=== PATIENT | female | born 1995 | race Hispanic/Latino ===

== ENCOUNTER 2020-05-13 03:36 | Emergency (ER) | payer SELFPAY ==
[2020-05-13 04:25] LABS: Absolute Lymphocytes (CBC) 0.6 K/uL (0.7-4.9); Basophils % 0.1 % (0-1.3); Hematocrit 36.7 % (36.0-45.0); Lymphocytes % 13.9 % (15.3-44.8); MPV 7.5 fL (7.6-11.3); RBC Red Blood Cell Count 4.68 M/uL (3.86-4.86)
[2020-05-13] MEDS ORDERED: ASPIRIN 81 MG CHEWABLE TABLET ONE (04:29)
[2020-05-13] MEDS ORDERED: NA CHLORIDE 0.9% 1,000 ML ONE (04:30)
[2020-05-13] MEDS ORDERED: AZITHROMYCIN 500 MG INJ IVPB ONE (04:30)
[2020-05-13] MEDS ORDERED: dexAMETHasone 10 MG/ML VIAL ONE (04:30)
[2020-05-13] MEDS ORDERED: FAMOTIDINE 20 MG/2 ML VIAL IV ONE (04:30)
[2020-05-13] MEDS ORDERED: NA CHLORIDE 0.9% 250 ML ONE (04:30)
[2020-05-13] MEDS ORDERED: ALBUTEROL INHALER 60 PUFF/8 GM IH ONE (04:37)
[2020-05-13 04:38] LABS: ALT/SGPT 27 U/L (12-78); AST/SGOT 19 U/L (15-37); Albumin 3.3 g/dL (3.4-5.0); Alkaline Phosphatase 66 U/L (45-117); BUN Blood Urea Nitrogen 9 mg/dL (7-18); Bicarbonate 22 mmol/L (21-32); Bilirubin Total 0.5 mg/dL (0.2-1.0); Glucose Level 112 mg/dL (74-106); Potassium 3.7 mmol/L (3.5-5.1); Protein, Total 7.8 g/dL (6.4-8.2); Sodium Level 140 mmol/L (136-145)
--- NOTE | 2020-05-13 05:34 | EDPHYS ---
Physician Documentation [facility] – [place], [place] Name: Rima Buckley Age: 24 yrs Sex: Female : 1995 Arrival Date: 05/13/2020 Time: 03:40 Bed 5 Private MD: ED Physician Skinny Luu HPI: 05/13 04:06 This 24 yrs old Female presents to ER via Ambulatory with complaints of christel COVID+, Shakiness. 04:06 The patient or guardian reports chest pain that is located primarily in the anterior [facility] chest wall, bilaterally. The patient or guardian reports cough, difficulty breathing, flu symptoms, arthralgias, low-grade fever, myalgias. Onset: The symptoms/episode began/occurred 7 day(s) ago. Modifying factors: The symptoms are alleviated by nothing. the symptoms are aggravated by nothing. The pain does not radiate. Associated signs and symptoms: Pertinent positives: chest pain, fever, nausea, rhinorrhea, sore throat. The chest pain is described as a pressure. Modifying factors: The symptoms are alleviated by nothing. the symptoms are aggravated by nothing. 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 - Social history:: Smoking status: Patient denies any tobacco usage or history of. - Family history:: not pertinent. ROS: 04:06 Constitutional: Negative for fever, chills, and weight loss, Eyes: Negative for injury, christel pain, redness, and discharge, ENT: Negative for injury, pain, and discharge, Neck: Negative for injury, pain, and swelling, Cardiovascular: Negative for chest pain, palpitations, and edema, Abdomen/GI: Negative for abdominal pain, nausea, vomiting, diarrhea, and constipation, Back: Negative for injury and pain, : Negative for injury, bleeding, discharge, and swelling, MS/Extremity: Negative for injury and deformity, Skin: Negative for injury, rash, and discoloration, Neuro: Negative for headache, weakness, numbness, tingling, and seizure, Psych: Negative for depression, anxiety, suicide ideation, homicidal ideation, and hallucinations, Allergy/Immunology: Negative for hives, rash, and allergies, Endocrine: Negative for neck swelling, polydipsia, polyuria, polyphagia, and marked weight changes, Hematologic/Lymphatic: Negative for swollen nodes, abnormal bleeding, and unusual bruising. 04:06 Respiratory: Positive for cough, shortness of breath. Exam: 04:08 Constitutional: This is a well developed, well nourished patient who is awake, alert, christel and in no acute distress. Head/Face: Normocephalic, atraumatic. Eyes: Pupils equal round and reactive to light, extra-ocular motions intact. Lids and lashes normal. Conjunctiva and sclera are non-icteric and not injected. Cornea within normal limits. Periorbital areas with no swelling, redness, or edema. ENT: Nares patent. No nasal discharge, no septal abnormalities noted. Tympanic membranes are normal and external auditory canals are clear. Oropharynx with no redness, swelling, or masses, exudates, or evidence of obstruction, uvula midline. Mucous membranes moist. Neck: Trachea midline, no thyromegaly or masses palpated, and no cervical lymphadenopathy. Supple, full range of motion without nuchal rigidity, or vertebral point tenderness. No Meningismus. Chest/axilla: Normal chest wall appearance and motion. Nontender with no deformity. No lesions are appreciated. Cardiovascular: Regular rate and rhythm with a normal S1 and S2. No gallops, murmurs, or rubs. Normal PMI, no JVD. No pulse deficits. Abdomen/GI: Soft, non-tender, with normal bowel sounds. No distension or tympany. No guarding or rebound. No evidence of tenderness throughout. Back: No spinal tenderness. No costovertebral tenderness. Full range of motion. Female : Normal external genitalia. Skin: Warm, dry with normal turgor. Normal color with no rashes, no lesions, and no evidence of cellulitis. MS/ Extremity: Pulses equal, no cyanosis. Neurovascular intact. Full, normal range of motion. Neuro: Awake and alert, GCS 15, oriented to person, place, time, and situation. Cranial nerves II-XII grossly intact. Motor strength 5/5 in all extremities. Sensory grossly intact. Cerebellar exam normal. Normal gait. Psych: Awake, alert, with orientation to person, place and time. Behavior, mood, and affect are within normal limits. 04:08 Respiratory: mild respiratory distress is noted, Respirations: no acute changes, labored breathing, is not present, Breath sounds: decreased breath sounds, that are mild, are located in both bases, Respiratory rate: 25 04:11 ECG was reviewed by the Attending Physician. [facility] Vital Signs: 03:51 BP 136 / 93; Pulse 115; Resp 24; Temp 98.6(O); Pulse Ox 96% ; Weight 81.65 kg; Height 5 em ft. 2 in. (157.48 cm); Pain 9/10; 04:05 BP 118 / 74; Pulse 101; Resp 25; Pulse Ox 99% ; rr5 05:05 BP 119 / 70; Pulse 99; Resp 24; Temp 98.8; Pulse Ox 99% ; rr5 05:52 BP 124 / 88; Pulse 98; Resp 20; Pulse Ox 99% on R/A; ea 03:51 Body Mass Index 32.92 (81.65 kg, 157.48 cm) em MDM: 03:48 Patient medically screened. [facility] 04:09 Differential diagnosis: bronchitis, flu, URI, abnormal EKG. Antibiotic administration: christel The patient is discharged and will get outpatient antibiotics, Zithromax. HEART Score: History: Slightly Suspicious (0), ECG: Normal (0), Age: < or = 45 years (0), Risk Factors: No Risk Factors Known (0), Troponin: < or = 1 x Normal Limit (0). The patient's deep vein thrombosis risk score was calculated as follows: Total Score: 0. This patient was found to be at low risk for a deep vein thrombosis by using the Well's assessment criteria. The patient's pulmonary embolism risk score was calculated as follows: Total Score: 0-2 points. This patient was found to be at low risk for a pulmonary embolism by using the Well's assessment criteria. ARNOLD Risk Score: not applicable. Data reviewed: vital signs, nurses notes, lab test result(s), EKG, radiologic studies. Data interpreted: monitoring manager: rate is 101 beats/min, rhythm is regular. Test interpretation: by ED physician or midlevel provider: ECG, plain radiologic studies. Counseling: I had a detailed discussion with the patient and/or guardian regarding: the historical points, exam findings, and any diagnostic results supporting the discharge/admit diagnosis, lab results, radiology results, the need for outpatient follow up. 05/13 04:06 Order name: CBC with Diff; Complete Time: 05:19 [facility] 05/13 04:06 Order name: Comprehensive Metabolic Panel; Complete Time: 05:19 [facility] 05/13 04:06 Order name: Chest Single View XRAY [facility] 05/13 04:06 Order name: CT Chest For PE Angio [facility] 05/13 05:06 Order name: Urine --Ancillary (enter results) tt3 05/13 05:06 Order name: Urine Dipstick--Ancillary (enter results) tt3 05/13 04:04 Order name: EKG; Complete Time: 04:04 05/13 04:04 Order name: EKG - Nurse/Tech; Complete Time: 04:04 ea 05/13 04:06 Order name: Urine Dipstick-Ancillary (obtain specimen); Complete Time: 05:03 [facility] 05/13 04:06 Order name: Urine Test (obtain specimen); Complete Time: 05:03 [facility] EC:11 Rate is 93 beats/min. Rhythm is regular. QRS [place] is Normal. CT interval is normal. QRS christel interval is normal. QT interval is normal. No Q waves. T waves are Normal. No ST changes noted. Clinical impression: Normal ECG and No evidence of ischemia. Interpreted by me. Reviewed by me. Administered Medications: 04:15 Drug: NS 0.9% 500 ml Route: IV; Rate: bolus; Site: right antecubital; rr5 05:50 Follow up: Response: No adverse reaction; IV Status: Completed infusion; IV Intake: ea 500ml 04:16 Drug: Aspirin Chewable Tablet 324 mg Route: PO; rr5 05:51 Follow up: Response: No adverse reaction ea 04:17 Drug: Pepcid 20 mg Route: IVP; Site: right antecubital; rr5 05:51 Follow up: Response: No adverse reaction ea 04:19 Drug: Decadron - Dexamethasone 10 mg Route: IVP; Site: right antecubital; rr5 05:50 Follow up: Response: No adverse reaction ea 04:20 Drug: Albuterol HFA Inhaler 4 puffs Route: Inhalation; rr5 04:21 Dru mg of (Zithromax 500 mg, NS 0.9% 250 ml) Route: IVPB; Infused Over: 1 hrs; rr5 Site: right antecubital; 05:51 Follow up: Response: No adverse reaction; IV Status: Completed infusion ea Disposition: 05/13/20 05:33 Discharged to Home. Impression: SARS-associated coronavirus as the cause of diseases classified elsewhere, Viral pneumonia, unspecified - COVID 19. - Condition is Stable. - Discharge Instructions: Community-Acquired Pneumonia, Adult, Community-Acquired Pneumonia, Adult, Ouir-py-Gmoh, Aspirin and Your Heart, COVID-19. - Prescriptions for dexamethasone 2 mg Oral tablet - take 1 tablet by ORAL route 3 times per day; 15 tablet. ivermectin 3 mg Oral tablet - take 4 tablet by ORAL route once daily x1 dose ON DAY #1 AND DAY #3; 8 tablet. Pepcid 20 mg Oral Tablet - take 1 tablet by ORAL route every 12 hours for 10 days; 20 tablet. Albuterol Sulfate 90 mcg/actuation Inhalation - inhale 2 puff by INHALATION route every 4-6 hours; 1 Inhaler. Zithromax 500 mg Oral Tablet - take 1 tablet by ORAL route once daily for 4 days; 4 tablet. - Medication Reconciliation Form, Thank You Letter, Antibiotic Education, Prescription Opioid Use form. - Follow up: Private Physician; When: 2 - 3 days; Reason: Recheck today's complaints, Continuance of care, Re-evaluation by your physician. Follow up: Charly Torres; When: 2 - 3 days; Reason: Recheck today's complaints, Continuance of care, Re-evaluation by your physician. - Problem is new. - Symptoms have improved. Signatures: Dispatcher [employer] Skinny Douglass MD MD cha Munoz, Edgar, RN Eduar Bhandari, GETTERER-C GETTERER-Cla1 Cristal Rojas RN RN ea Roque, Raymond RN RN rr5 Corrections: (The following items were deleted from the chart) 05:55 05:33 05/13/2020 05:33 Discharged to Home. Impression: SARS-associated coronavirus as ea the cause of diseases classified elsewhere; Viral pneumonia, unspecified - COVID 19. Condition is Stable. Discharge Instructions: Community-Acquired Pneumonia, Adult, Community-Acquired Pneumonia, Adult, Xfzd-ma-[id number], Aspirin and Your Heart, COVID-19. Prescriptions for dexamethasone 2 mg Oral tablet - take 1 tablet by ORAL route 3 times per day; 15 tablet, ivermectin 3 mg Oral tablet - take 4 tablet by ORAL route once daily x1 dose ON DAY #1 AND DAY #3; 8 tablet, Pepcid 20 mg Oral Tablet - take 1 tablet by ORAL route every 12 hours for 10 days; 20 tablet, Albuterol Sulfate 90 mcg/actuation Inhalation - inhale 2 puff by INHALATION route every 4-6 hours; 1 Inhaler, Zithromax 500 mg Oral Tablet - take 1 tablet by ORAL route once daily for 4 days; 4 tablet. and Forms are Medication Reconciliation Form, Thank You Letter, Antibiotic Education, Prescription Opioid Use. Follow up: Private Physician; When: 2 - 3 days; Reason: Recheck today's complaints, Continuance of care, Re-evaluation by your physician. Follow up: Charly Torres; When: 2 - 3 days; Reason: Recheck today's complaints, Continuance of care, Re-evaluation by your physician. Problem is new. Symptoms have improved. christel
--- NOTE | 2020-05-13 05:34 | ER ---
Nurse's Notes [facility] [place] Name: Rima Buckley Age: 24 yrs Sex: Female : 1995 Arrival Date: 05/13/2020 Time: 03:40 Bed 5 Private MD: Diagnosis: SARS-associated coronavirus as the cause of diseases classified elsewhere;Viral pneumonia, unspecified-COVID 19 Presentation: 05/13 03:47 Ebola Screen: No symptoms or risks identified at this time. ea 03:51 Chief complaint: Patient states: was covid pos. on Monday, went to [place] for treatment, em discharged and given antibiotics, steroids, and cough medicine, pt reports not feeling better, reports more SOB, fever, chills, and chest pain. Coronavirus screen: Client reports previous positive COVID test result. Date of collection: May 10, 2020. Ebola Screen: Patient negative for fever greater than or equal to 101.5 degrees Fahrenheit, and additional compatible Ebola Virus Disease symptoms Patient denies exposure to infectious person. Patient denies travel to an Ebola-affected area in the 21 days before illness onset. No symptoms or risks identified at this time. Initial Sepsis Screen: Does the patient meet any 2 criteria? RR > 20 per min. HR > 90 bpm. No. Patient's initial sepsis screen is negative. Does the patient have a suspected source of infection? Yes: Productive cough/pneumonia. Risk Assessment: Do you want to hurt yourself or someone else? Patient reports no desire to harm self or others. Onset of symptoms was May 10, 2020. 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 - Social history:: Smoking status: Patient denies any tobacco usage or history of. - Family history:: not pertinent. Screenin:46 Abuse screen: Denies threats or abuse. Nutritional screening: No deficits noted. ea Tuberculosis screening: No symptoms or risk factors identified. Fall Risk None identified. Assessment: 03:55 General: Appears in no apparent distress. uncomfortable, Behavior is cooperative, rr5 anxious, Reports chills for fever for feeling ill for. 03:55 Pain: Complains of pain in chest Pain Quality of pain is described as aching, Pain rr5 began gradually, Is intermittent. Neuro: Level of Consciousness is awake, alert, obeys commands, Oriented to person, place, time. Cardiovascular: Reports chest pain, Capillary refill < 3 seconds Patient's skin is warm and dry. Respiratory: Reports shortness of breath cough that is Airway is patent Respiratory effort is even, unlabored, Respiratory pattern is regular, symmetrical. GI:. Derm: Skin is intact, is healthy with good turgor, Skin temperature is warm. Musculoskeletal: Capillary refill < 3 seconds. 05:05 Reassessment: Patient appears in no apparent distress at this time. Patient is alert, rr5 oriented x 3, equal unlabored respirations, skin warm/dry/pink. back from CT scan, urine specimen given. vital signs taken and recorded. 05:44 Reassessment: Patient and/or family updated on plan of care and expected duration. Pain ea level reassessed. Patient is alert, oriented x 3, equal unlabored respirations, skin warm/dry/pink. Awaiting on fluids to complete. Vital Signs: 03:51 BP 136 / 93; Pulse 115; Resp 24; Temp 98.6(O); Pulse Ox 96% ; Weight 81.65 kg; Height 5 em ft. 2 in. (157.48 cm); Pain 9/10; 04:05 BP 118 / 74; Pulse 101; Resp 25; Pulse Ox 99% ; rr5 05:05 BP 119 / 70; Pulse 99; Resp 24; Temp 98.8; Pulse Ox 99% ; rr5 05:52 BP 124 / 88; Pulse 98; Resp 20; Pulse Ox 99% on R/A; ea 03:51 Body Mass Index 32.92 (81.65 kg, 157.48 cm) em ED Course: 03:40 Patient arrived in ED. cl3 03:41 Skinny Luu MD is Attending Physician. christel 03:46 Cristal Rojas RN is Primary Nurse. ea 03:46 Patient has correct armband on for positive identification. Bed in low position. Call ea light in reach. Side rails up X2. 03:52 Arm band placed on right wrist. Patient placed in an exam room, on a stretcher, on ea pulse oximetry. 03:54 Triage completed. em 03:55 Inserted saline lock: 20 gauge in right antecubital area, using aseptic technique. ds4 Blood collected. 03:59 EKG done, by ED staff, reviewed by Skinny Luu MD. rr5 04:18 Chest Single View XRAY In Process Unspecified. EDMS 05:03 CT Chest For PE Angio In Process Unspecified. EDMS 05:06 Urine collected: clean catch specimen, clear. rr5 05:33 Charly Torres MD is Referral Physician. christel 05:51 No provider procedures requiring assistance completed. IV discontinued, intact, ea bleeding controlled, No redness/swelling at site. Pressure dressing applied. Administered Medications: 04:15 Drug: NS 0.9% 500 ml Route: IV; Rate: bolus; Site: right antecubital; rr5 05:50 Follow up: Response: No adverse reaction; IV Status: Completed infusion; IV Intake: ea 500ml 04:16 Drug: Aspirin Chewable Tablet 324 mg Route: PO; rr5 05:51 Follow up: Response: No adverse reaction ea 04:17 Drug: Pepcid 20 mg Route: IVP; Site: right antecubital; rr5 05:51 Follow up: Response: No adverse reaction ea 04:19 Drug: Decadron - Dexamethasone 10 mg Route: IVP; Site: right antecubital; rr5 05:50 Follow up: Response: No adverse reaction ea 04:20 Drug: Albuterol HFA Inhaler 4 puffs Route: Inhalation; rr5 04:21 Dru mg of (Zithromax 500 mg, NS 0.9% 250 ml) Route: IVPB; Infused Over: 1 hrs; rr5 Site: right antecubital; 05:51 Follow up: Response: No adverse reaction; IV Status: Completed infusion ea Intake: 05:50 IV: 500ml; Total: 500ml. ea Outcome: 05:33 Discharge ordered by . christel 05:52 Discharged to home ambulatory. ea 05:52 Condition: stable 05:52 Discharge instructions given to patient, Instructed on discharge instructions, follow up and referral plans. medication usage, Demonstrated understanding of instructions, follow-up care, medications, Prescriptions given X 4. 05:55 Patient left the ED. ea Signatures: Dispatcher [employer] Skinny Douglass MD MD cha Munoz, Edgar, RN RN Drake Morris ds4 Cristal Rojas RN RN Sanket Alvarez RN RN rr5 Thomas Cruz cl3 Corrections: (The following items were deleted from the chart) 04:06 04:05 BP 118 / 74; Pulse 101bpm; Resp 23bpm; Pulse Ox 99%; rr5 rr5 04:08 03:59 COVID swab sent to lab. rr5 rr5 05:53 05:52 BP 124 / 88; Pulse 98bpm; Resp 22bpm; Pulse Ox 99% RA; rosa lee
[2020-05-13 06:29] LABS: Urine Blood 1+ (NEG); Urine Glucose NEGATIVE (NEG); Urine Protein TRACE (NEG); Urine pH 6.5 (5.0-7.0)
--- NOTE | 2020-05-13 08:45 | RAD REPORT ---
EXAM DESCRIPTION: RAD - Chest Single View - 05/13/2020 4:19 am CLINICAL HISTORY: Chest pain;Dyspnea Chest pain. COMPARISON: Chest For Pe Angio dated 05/13/2020 FINDINGS: Portable technique limits examination quality. Mild bilateral interstitial lung opacities probably represents a viral infection. The heart is normal in size. No displaced fractures.
[2020-05-13 09:13] VITALS: BP 136/93; TEMP 98.6; O2SAT 96
--- NOTE | 2020-05-13 09:40 | RAD REPORT ---
EXAM DESCRIPTION: ADDENDUM #1 Technique: This exam was performed according to our departmental dose-optimization program, which includes autom ated exposure control, adjustment of the mA and/or kV according to patient size and/or use of iterati ve reconstruction technique. Electronically signed by: Jigar Merino 05/13/2020 5:25 AM INSURANCE UNDERWRITER End of Addendum EXAM DESCRIPTION: Chest For Pe Angio CLINICAL HISTORY: Cough;Dyspnea COMPARISON: None Available. TECHNIQUE: CTA of the chest obtained following the uncomplicated intravenous administration of iodin ated contrast. 3-D/MIP reformatted images of the chest available for evaluation. FINDINGS: Chest: Pulmonary arteries: Contrast bolus is adequate.No filling defects identified in the pulmonary arterie s to suggest pulmonary embolus. Thyroid: No abnormalities of the visualized thyroid. Great Vessels: Great vessels have normal anatomic configuration. Thoracic Aorta: No abnormalities of the thoracic aorta identified. Heart: No cardiomegaly, significant pericardial effusion, or coronary artery atherosclerosis Lymph Nodes: No enlarged mediastinal lymph nodes identified. Esophagus: No abnormalities of the esophagus identified. Other: No additional findings. Lungs: Bilateral central and peripheral ground glass/airspace opacities. Pleura: No pleural effusion or pneumothorax. Trachea/Airways: No abnormalities of the visualized trachea or airways. Bones: No destructive osseous lesions. Upper Abdomen: Limited images of the upper abdomen demonstrate no definite abnormalities of visualize d portions of the liver, gallbladder, pancreas, spleen, adrenal glands, or kidneys. IMPRESSION: 1. No pulmonary embolus identified. 2. Bilateral central and peripheral ground glass/airspace opacities. These findings could be seen w ith COVID-19 pneumonia. Other processes such as influenza pneumonia and organizing pneumonia, as can be seen with drug toxicity and connective tissue disease, can cause similar imaging pattern. Electronically signed by: Jigar Merino 05/13/2020 5:12 AM INSURANCE UNDERWRITER Due to temporary technical issues with the PACS/Fluency reporting system, reports are being signed by the in house radiologist without review as a courtesy to ensure prompt reporting. The interpreting r adiologist is fully responsible for the content of the report.
--- NOTE | 2020-05-13 22:26 | EKG ---
Test Date: 2020-05-13 Test Time: 03:53:16 Breakfast Bar Attendant: RR MEASUREMENT RESULTS: Intervals: Rate: 93 CA: 154 QRSD: 72 QT: 378 QTc: 469 [place]: P: 37 CA: 154 QRS: 24 T: 44 INTERPRETIVE STATEMENTS: Normal sinus rhythm Normal ECG No previous ECG available for comparison Electronically Signed On 05-13-20 22:25:26 RAMP FLIGHT ATTENDANT by Riccardo Jacobo
== END 2020-05-13 05:55 | disposition home or self-care (01) ==
LOC: ER 03:36
DX: U07.1 COVID-19 (principal); J12.82 Pneumonia due to coronavirus disease 2019
CPT/HCPCS: 36415; 71045; 71275; 80053; 81003; 81025; 85025; 93005; 96365; 96375; 99285; J0456; J1100; J7030; J7050; Q9967

== ENCOUNTER 2020-05-15 19:36 | Emergency (ER) | payer SELFPAY ==
[2020-05-15] MEDS ORDERED: ALBUTEROL INHALER 60 PUFF/8 GM IH ONE (20:42)
--- NOTE | 2020-05-15 22:12 | EDPHYS ---
Physician Documentation [facility] Name: Rima Buckley Age: 24 yrs Sex: Female : 1995 Arrival Date: 05/15/2020 Time: 19:41 Bed 13 Private MD: ED Physician Guero Levine HPI: 05/15 20:25 This 24 yrs old Female presents to ER via Ambulatory with complaints of cp Covid+, Anxiety. 20:25 The patient or guardian reports cough, that is intermittent, shortness of breath. cp 20:25 Onset: The symptoms/episode began/occurred last month. Associated signs and symptoms: cp Pertinent positives: chest pain, with cough, Pertinent negatives: fever, vomiting. Severity of symptoms: in the emergency department the symptoms are unchanged despite home interventions. 20:25 Patient reports symptoms of cough, congestion, chest pain since testing positive for cp COVID-19 on 05-09-20. Patient received results 05-11-2020 and was seen in this ED 05-13-20. Patient currently taking prescribed dexamethasone and Zithromax, had CT of chest that was negative for pulmonary embolism at that visit. Comes to ED today with concern for continued cough, chest pain with cough and mid back pain. Historical: - Allergies: 19:57 No Known Allergies; ca1 - PMHx: 19:57 None; ca1 - PSHx: 19:57 None; ca1 - Immunization history:: Flu vaccine is not up to date. - Social history:: Smoking status: Patient denies any tobacco usage or history of. ROS: 20:45 Constitutional: Negative for body aches, chills, fever, poor PO intake. cp 20:45 Eyes: Negative for injury, pain, redness, and discharge. cp 20:45 ENT: Negative for ear pain, sore throat, difficulty swallowing, difficulty handling secretions. 20:45 Cardiovascular: Positive for chest pain, with cough, Negative for edema, palpitations. 20:45 Respiratory: Positive for cough, with no reported sputum, Negative for shortness of breath, wheezing. 20:45 Abdomen/GI: Negative for abdominal pain, nausea, vomiting, and diarrhea. 20:45 Back: Positive for pain at rest, of the left subscapular area and right subscapular area. 20:45 Skin: Negative for rash. 20:45 Neuro: Negative for altered mental status, headache, weakness. 20:45 Psych: Positive for anxiety. 20:45 All other systems are negative. Exam: 20:50 Constitutional: The patient appears in no acute distress, alert, awake, cp non-diaphoretic, non-toxic, well developed, well nourished, anxious. 20:50 Head/Face: Normocephalic, atraumatic. cp 20:50 Eyes: Periorbital structures: appear normal, Conjunctiva: normal, no exudate, no injection, Sclera: no appreciated abnormality, Lids and lashes: appear normal, bilaterally. 20:50 ENT: External ear(s): are unremarkable, Nose: is normal, Mouth: Lips: moist, Oral mucosa: moist, Posterior pharynx: Airway: no evidence of obstruction, patent. 20:50 Neck: ROM/movement: is normal, is supple, without pain, no range of motions limitations, no meningismus. 20:50 Chest/axilla: Inspection: normal, Palpation: is normal, no crepitus, no tenderness. 20:50 Cardiovascular: Rate: normal, Rhythm: regular, Edema: is not appreciated, JVD: is not appreciated. 20:50 Respiratory: the patient does not display signs of respiratory distress, Respirations: normal, no use of accessory muscles, no retractions, labored breathing, is not present, Breath sounds: bronchial sounds, that are mild, are heard in the left posterior lower lobe, right posterior middle lobe and right posterior lower lobe, decreased breath sounds, are not appreciated, stridor, is not appreciated, wheezing: is not appreciated. 20:50 Abdomen/GI: Inspection: abdomen appears normal, Palpation: abdomen is soft and non-tender, in all quadrants. 20:50 Back: pain, that is very mild, of the left subscapular area and right subscapular area, ROM is normal. 20:50 Skin: no rash present. 20:50 Neuro: Orientation: to person, place \T\ time. Mentation: is normal. 20:50 Psych: Behavior/mood is anxious. Vital Signs: 19:53 BP 147 / 99; Pulse 96; Resp 17 S; Temp 97(TE); Pulse Ox 97% on R/A; Weight 83.46 kg ca1 (R); Height 5 ft. 2 in. (157.48 cm) (R); 21:31 BP 127 / 58; Pulse 80; Resp 17; Pulse Ox 99% ; ea 19:53 Body Mass Index 33.65 (83.46 kg, 157.48 cm) ca1 MDM: 19:48 Patient medically screened. cp 22:10 Data reviewed: vital signs, nurses notes, radiologic studies, plain films. cp 22:10 Test interpretation: by ED physician or midlevel provider: plain radiologic studies. cp Counseling: I had a detailed discussion with the patient and/or guardian regarding: the historical points, exam findings, and any diagnostic results supporting the discharge/admit diagnosis, radiology results, to return to the emergency department if symptoms worsen or persist or if there are any questions or concerns that arise at home. ED course: VSS. Reassurance. low suspicion for pulmonary embolism at this time. Patient with no signs of respiratory distress. CT of chest negative for PE on 05-13-2020. Patient not tachycardic and with oxygen sats 98-99% on room air while being monitored in ED. Will discharge to home for continued monitoring. Recommend monitoring oxygen with finger pulse oximeter and return to Ed worsening symptoms. 05/15 20:20 Order name: XRAY Chest (1 view) cp Administered Medications: 20:40 Drug: Albuterol HFA Inhaler 2 puffs Route: Inhalation; ea Disposition: 05/16 03:14 Co-signature as Attending Physician, Guero Levine MD. [email or web address] Disposition: 05/15/20 22:11 Discharged to Home. Impression: Other viral pneumonia - COVID-19. - Condition is Stable. - Discharge Instructions: COVID-19. - Medication Reconciliation Form, Thank You Letter, Antibiotic Education, Prescription Opioid Use form. - Follow up: Private Physician; When: 2 - 3 days; Reason: Recheck today's complaints. - Problem is an ongoing problem. - Symptoms have improved. Signatures: Dispatcher [employer] EDMS Skinny Lucas PA PA cp Antunez, Elena, RN RN ea Acob, Cheryl, RN RN ca1 Holmes, Maurice, MD MD [email or web address] Corrections: (The following items were deleted from the chart) 05/15 22:12 22:11 05/15/2020 22:11 Discharged to Home. Impression: Coronavirus as the cause of cp diseases classified elsewhere. Condition is Stable. Forms are Medication Reconciliation Form, Thank You Letter, Antibiotic Education, Prescription Opioid Use. Follow up: Private Physician; When: 2 - 3 days; Reason: Recheck today's complaints. Problem is an ongoing problem. Symptoms have improved. cp 22:25 22:12 05/15/2020 22:11 Discharged to Home. Impression: Other viral pneumonia - ea COVID-19. Condition is Stable. Forms are Medication Reconciliation Form, Thank You Letter, Antibiotic Education, Prescription Opioid Use. Follow up: Private Physician; When: 2 - 3 days; Reason: Recheck today's complaints. Problem is an ongoing problem. Symptoms have improved. cp
--- NOTE | 2020-05-15 22:12 | ER ---
Nurse's Notes [facility] Name: Rima Buckley Age: 24 yrs Sex: Female : 1995 Arrival Date: 05/15/2020 Time: 19:41 Bed 13 Private MD: Diagnosis: Other viral [id number] Presentation: 05/15 19:53 Chief complaint: Patient states: Covid+ 05/09/2020, S/S started a week prior to texting. ca1 Monday05/11/2020, she she got the result she's been feeling anxious and the anxiety is just getting worse. Reports SOB. Pt shaking, appears anxious. Coronavirus screen: Client reports previous positive COVID test result. Date of collection: May 09, 2020 Staff notified of need for isolation. Ebola Screen: Patient negative for fever greater than or equal to 101.5 degrees Fahrenheit, and additional compatible Ebola Virus Disease symptoms Patient denies exposure to infectious person. Patient denies travel to an Ebola-affected area in the 21 days before illness onset. No symptoms or risks identified at this time. Initial Sepsis Screen: Does the patient meet any 2 criteria? No. Patient's initial sepsis screen is negative. Does the patient have a suspected source of infection? No. Patient's initial sepsis screen is negative. Risk Assessment: Do you want to hurt yourself or someone else? Patient reports no desire to harm self or others. Onset of symptoms was May 15, 2020. 19:53 Method Of Arrival: Ambulatory ca1 19:53 Acuity: ROYA 3 ca1 Historical: - Allergies: 19:57 No Known Allergies; ca1 - PMHx: 19:57 None; ca1 - PSHx: 19:57 None; ca1 - Immunization history:: Flu vaccine is not up to date. - Social history:: Smoking status: Patient denies any tobacco usage or history of. Screenin:09 Abuse screen: Denies threats or abuse. Nutritional screening: No deficits noted. ea Tuberculosis screening: No symptoms or risk factors identified. Fall Risk None identified. Assessment: 20:09 General: Appears in no apparent distress. Behavior is calm, cooperative, appropriate ea for age. Pain: Denies pain. Neuro: Level of Consciousness is awake, alert, obeys commands, Oriented to person, place, time. Cardiovascular: Patient's skin is warm and dry. Respiratory: Airway is patent Respiratory effort is even, unlabored, Respiratory pattern is regular, symmetrical. Derm: Skin is pink, warm \T\ dry. 21:08 Reassessment: Patient and/or family updated on plan of care and expected duration. Pain ea level reassessed. Patient is alert, oriented x 3, equal unlabored respirations, skin warm/dry/pink. 21:29 Reassessment: Patient and/or family updated on plan of care and expected duration. Pain ea level reassessed. Patient is alert, oriented x 3, equal unlabored respirations, skin warm/dry/pink. Vital Signs: 19:53 BP 147 / 99; Pulse 96; Resp 17 S; Temp 97(TE); Pulse Ox 97% on R/A; Weight 83.46 kg ca1 (R); Height 5 ft. 2 in. (157.48 cm) (R); 21:31 BP 127 / 58; Pulse 80; Resp 17; Pulse Ox 99% ; ea 19:53 Body Mass Index 33.65 (83.46 kg, 157.48 cm) ca1 ED Course: 19:41 Patient arrived in ED. bp1 19:44 Skinny Lucas PA is PHCP. cp 19:44 Guero Levine MD is Attending Physician. cp 19:47 Cristal Rojas, JIN is Primary Nurse. ea 19:56 Triage completed. ca1 19:57 Arm band placed on right wrist. ca1 20:10 Patient has correct armband on for positive identification. Bed in low position. Call ea light in reach. Side rails up X2. 22:25 No provider procedures requiring assistance completed. Patient did not have IV access ea during this emergency room visit. Administered Medications: 20:40 Drug: Albuterol HFA Inhaler 2 puffs Route: Inhalation; ea Outcome: 22:11 Discharge ordered by MD. cp 22:25 Discharged to home ambulatory, with family. ea 22:25 Condition: stable 22:25 Discharge instructions given to patient, Instructed on discharge instructions, follow up and referral plans. Demonstrated understanding of instructions, follow-up care. 22:25 Patient left the ED. ea Signatures: Skinny Lucas PA PA cp Antunez, Elena RN RN Kaycee Lucas RN RN ca1 Isadora Jung bp1
[2020-05-16 00:58] VITALS: TEMP 97
[2020-05-16 00:59] VITALS: BP 127/58; O2SAT 99
--- NOTE | 2020-05-16 07:56 | RAD REPORT ---
EXAM DESCRIPTION: RAD - Chest Single View - 05/15/2020 9:25 pm CLINICAL HISTORY: SOB, COVID positive COMPARISON: CT chest May 13, portable chest May 13 TECHNIQUE: AP portable chest image was obtained 05/15/2020 9:25 pm . FINDINGS: Lung volumes are low. Patchy airspace opacification present in the lung mijares similar or less prominent than the May 13 imaging. Heart size is upper normal, magnified by portable technique and low lung volume. Trachea is midline. No measurable pleural effusion and no pneumothorax. No acute bony abnormality seen. No acute aortic finding. Bowel gas pattern is prominent but unchanged. IMPRESSION: Bilateral COVID-19 pneumonia findings present and show improvement from May 13.
== END 2020-05-15 22:25 | disposition home or self-care (01) ==
LOC: ER 19:36
DX: U07.1 COVID-19 (principal); J12.82 Pneumonia due to coronavirus disease 2019
CPT/HCPCS: 71045; 99284

== ENCOUNTER 2020-05-29 16:04 | Emergency (ER) | payer SELFPAY ==
--- NOTE | 2020-05-29 19:30 | RAD REPORT ---
EXAM DESCRIPTION: RAD - Chest Pa And Lat (2 Views) - 05/29/2020 6:45 pm CLINICAL HISTORY: DYSPNEA Chest pain. COMPARISON: Chest Single View dated 05/15/2020; Chest Single View dated 05/13/2020 FINDINGS: The lungs are clear. The heart is normal in size. No displaced fractures. IMPRESSION: No acute or concerning finding suspected.
--- NOTE | 2020-05-29 20:39 | ER ---
Nurse's Notes [facility] Name: Rima Buckley Age: 24 yrs Sex: Female : 1995 Arrival Date: 05/29/2020 Time: 16:09 Bed 16 Private MD: Diagnosis: Dyspnea;Coronavirus infection, unspecified Presentation: 05/29 16:15 Chief complaint: Patient states: Covid+ 05/11/2020. S/S started 05/08/2020. SOB and chest ca1 tightness and burning since last night. I can't sleep like something is stuck in my throat. Coronavirus screen: Client reports previous positive COVID test result. Date of collection: May 11, 2020. Ebola Screen: Patient negative for fever greater than or equal to 101.5 degrees Fahrenheit, and additional compatible Ebola Virus Disease symptoms Patient denies exposure to infectious person. Patient denies travel to an Ebola-affected area in the 21 days before illness onset. No symptoms or risks identified at this time. Initial Sepsis Screen: Does the patient meet any 2 criteria? No. Patient's initial sepsis screen is negative. Does the patient have a suspected source of infection? No. Patient's initial sepsis screen is negative. Risk Assessment: Do you want to hurt yourself or someone else? Patient reports no desire to harm self or others. Onset of symptoms was May 11, 2020. 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 - Social history:: Smoking status: Patient denies any tobacco usage or history of. Screenin:30 Abuse screen: Denies threats or abuse. Denies injuries from another. Nutritional rr5 screening: No deficits noted. Tuberculosis screening: No symptoms or risk factors identified. Fall Risk IV access (20 points). Total La Fall Scale indicates No Risk (0-24 pts). Assessment: 19:30 General: Appears in no apparent distress. uncomfortable, Behavior is calm, cooperative, rr5 appropriate for age. 19:30 Pain: Complains of pain in chest Pain currently is 8 out of 10 on a pain scale. Quality rr5 of pain is described as aching. Neuro: Level of Consciousness is awake, alert, obeys commands, Oriented to person, place, time, situation. Cardiovascular: Capillary refill < 3 seconds Patient's skin is warm and dry. Rhythm is sinus tachycardia. Respiratory: Reports shortness of breath Airway is patent Respiratory effort is even, unlabored, Respiratory pattern is regular, symmetrical, GI: No signs and/or symptoms were reported involving the gastrointestinal system. : No signs and/or symptoms were reported regarding the genitourinary system. EENT: No signs and/or symptoms were reported regarding the EENT system. Derm: Skin is intact, is healthy with good turgor, Skin temperature is warm. Musculoskeletal: Capillary refill < 3 seconds. 20:58 Reassessment: Patient appears in no apparent distress at this time. Patient is alert, rr5 oriented x 3, equal unlabored respirations, skin warm/dry/pink. discharge instruction given and explained without complaints made. Vital Signs: 16:15 BP 105 / 94; Pulse 125; Resp 20 S; Temp 97.5(TE); Pulse Ox 99% on R/A; Weight 81.65 kg ca1 (R); Height 5 ft. 2 in. (157.48 cm) (R); Pain 8/10; 20:35 BP 115 / 85; Pulse 105; Resp 19; Pulse Ox 100% ; rr5 20:58 Temp 98.1; rr5 16:15 Body Mass Index 32.92 (81.65 kg, 157.48 cm) ca1 ED Course: 16:09 Patient arrived in ED. as 16:17 Triage completed. ca1 16:18 Arm band placed on right wrist. ca1 18:33 Khadra Chowdhury FNP-C is PHCP. kb 18:33 Nick Mejia MD is Attending Physician. kb 18:44 Chest Pa And Lat (2 Views) XRAY In Process Unspecified. EDMS 19:45 Sanket Velarde, JIN is Primary Nurse. rr5 19:58 Patient has correct armband on for positive identification. Call light in reach. Pulse rr5 ox on. NIBP on. 19:58 Inserted saline lock: 20 gauge in right forearm, using aseptic technique. Blood rr5 collected. 20:08 ekg monitor tech on. rr5 20:59 No provider procedures requiring assistance completed. IV discontinued, intact, rr5 bleeding controlled, No redness/swelling at site. Pressure dressing applied. Administered Medications: No medications were administered Outcome: 20:39 Discharge ordered by . gloria 20:59 Discharged to home ambulatory. rr5 20:59 Condition: stable 20:59 Discharge instructions given to patient, Instructed on discharge instructions, follow up and referral plans. Demonstrated understanding of instructions, follow-up care. 20:59 Patient left the ED. rr5 Signatures: Dispatcher [employer] EDMS Khadra Chowdhury, ANALYTICAL RESEARCH CHEMIST-C ANALYTICAL RESEARCH CHEMIST-Jeanne Adorno Raymond RN RN rr5 Kaycee Kaiser RN RN ca1 Corrections: (The following items were deleted from the chart) 18:05 16:15 Acuity: ROYA 3 ca1 ca1
--- NOTE | 2020-05-29 20:39 | EDPHYS ---
Physician Documentation [facility] Name: Rima Buckley Age: 24 yrs Sex: Female : 1995 Arrival Date: 05/29/2020 Time: 16:09 Bed 16 Private MD: ED Physician Nick Mejia HPI: 05/30 00:29 This 24 yrs old Female presents to ER via Ambulatory with complaints of kb Shortness Of Breath. 00:29 The patient has shortness of breath at rest. Onset: The symptoms/episode began/occurred kb 3 week(s) ago. Duration: The symptoms are continuous. The patient's shortness of breath is aggravated by exertion, is alleviated by nothing. Associated signs and symptoms: The patient has no apparent associated signs or symptoms. Severity of symptoms: At their worst the symptoms were moderate in the emergency department the symptoms are unchanged. The patient has experienced a previous episode. The patient has been recently seen at the [facility] Emergency Department. Pt reports shortness of breath for 3-4 weeks due to covid. States she feels like fluid comes up her throat if she lays down. Concerned because people have been telling her that once you have covid pneumonia it never goes away and she was diagnosed with that a couple of weeks ago. Came in today because the shortness of breath seemed to get worse . 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 - Social history:: Smoking status: Patient denies any tobacco usage or history of. ROS: 05/30 00:29 Constitutional: Negative for fever, chills, and weight loss, Cardiovascular: Negative kb for chest pain, palpitations, and edema, Abdomen/GI: Negative for abdominal pain, nausea, vomiting, diarrhea, and constipation, Back: Negative for injury and pain, MS/Extremity: Negative for injury and deformity, Skin: Negative for injury, rash, and discoloration, Neuro: Negative for headache, weakness, numbness, tingling, and seizure. Respiratory: Positive for shortness of breath, Negative for cough, dyspnea on exertion, hemoptysis, orthopnea, pleurisy, sputum production, wheezing. Exam: 00:28 Constitutional: This is a well developed, well nourished patient who is awake, alert, kb and in no acute distress. Head/Face: Normocephalic, atraumatic. Cardiovascular: Regular rate and rhythm with a normal S1 and S2. No gallops, murmurs, or rubs. No pulse deficits. Respiratory: Respirations even and unlabored. No increased work of breathing, no retractions or nasal flaring. Abdomen/GI: Soft, non-tender. No distention Skin: Warm, dry with normal turgor. Normal color. MS/ Extremity: Pulses equal, no cyanosis. Neurovascular intact. Full, normal range of motion. Neuro: Awake and alert, GCS 15, oriented to person, place, time, and situation. Moves all extremities. Normal gait. 00:28 Constitutional: The patient appears anxious. Vital Signs: 05/29 16:15 BP 105 / 94; Pulse 125; Resp 20 S; Temp 97.5(TE); Pulse Ox 99% on R/A; Weight 81.65 kg ca1 (R); Height 5 ft. 2 in. (157.48 cm) (R); Pain 8/10; 20:35 BP 115 / 85; Pulse 105; Resp 19; Pulse Ox 100% ; rr5 20:58 Temp 98.1; rr5 16:15 Body Mass Index 32.92 (81.65 kg, 157.48 cm) ca1 MDM: 18:54 Patient medically screened. kb 05/30 00:28 Data reviewed: vital signs, nurses notes. Data interpreted: Pulse oximetry: on room air kb is 100 %. Interpretation: normal. Counseling: I had a detailed discussion with the patient and/or guardian regarding: the historical points, exam findings, and any diagnostic results supporting the discharge/admit diagnosis, lab results, radiology results, the need for outpatient follow up, a family practitioner, to return to the emergency department if symptoms worsen or persist or if there are any questions or concerns that arise at home. 00:32 ED course: Pt obviously relieved when normal chest x-ray results discussed . kb 05/29 19:27 Order name: D-Dimer; Complete Time: 20:38 kb 05/29 16:51 Order name: Chest Pa And Lat (2 Views) XRAY; Complete Time: 19:35 kb 05/29 19:27 Order name: IV Start; Complete Time: 19:58 kb Administered Medications: No medications were administered Disposition: 05/29/20 20:39 Discharged to Home. Impression: Dyspnea, Coronavirus infection, unspecified. - Condition is Stable. - Discharge Instructions: Shortness of Breath, [id number], Viral Respiratory Infection, [id number], COVID-19. - Medication Reconciliation Form, Thank You Letter, Antibiotic Education, Prescription Opioid Use form. - Follow up: Emergency Department; When: As needed; Reason: Worsening of condition. Follow up: Private Physician; When: 2 - 3 days; Reason: Recheck today's complaints, Continuance of care, Re-evaluation by your physician. Addendum: 05/31/2020 01:14 Co-signature as Attending Physician, Nick Mejia MD I agree with the assessment and k dr plan of care. Signatures: Dispatcher [employer] EDMS Khadra Chowdhury, COREMAKER FLOOR-C COREMAKER FLOOR-Ckb Nick Mejia MD MD [facility] Sanket Velarde, RN RN rr5 AcKaycee prieto RN RN ca1 Corrections: (The following items were deleted from the chart) 05/29 20:59 20:39 05/29/2020 20:39 Discharged to Home. Impression: Dyspnea; Coronavirus infection, rr5 unspecified. Condition is Stable. Forms are Medication Reconciliation Form, Thank You Letter, Antibiotic Education, Prescription Opioid Use. Follow up: Emergency Department; When: As needed; Reason: Worsening of condition. Follow up: Private Physician; When: 2 - 3 days; Reason: Recheck today's complaints, Continuance of care, Re-evaluation by your physician. kb
[2020-05-29 21:14] VITALS: BP 115/85; TEMP 98.1; O2SAT 100
== END 2020-05-29 20:59 | disposition home or self-care (01) ==
LOC: ER 16:04
DX: U07.1 COVID-19 (principal)
CPT/HCPCS: 36415; 71046; 85379; 99284

== ENCOUNTER 2020-06-08 17:49 | Emergency (ER) | payer SELFPAY ==
[2020-06-08 19:04] LABS: Absolute Lymphocytes (CBC) 1.1 K/uL (0.7-4.9); Basophils % 0.6 % (0-1.3); Hematocrit 39.7 % (36.0-45.0); Lymphocytes % 16.8 % (15.3-44.8); MPV 8.1 fL (7.6-11.3)
[2020-06-08 19:17] LABS: BUN Blood Urea Nitrogen 4 mg/dL (7-18); Bicarbonate 25 mmol/L (21-32); Glucose Level 110 mg/dL (74-106); Potassium 3.8 mmol/L (3.5-5.1); Sodium Level 140 mmol/L (136-145)
[2020-06-08] MEDS ORDERED: KETOROLAC 30 MG/ML INJ ONE (19:31)
[2020-06-08] MEDS ORDERED: NA CHLORIDE 0.9% 1,000 ML ONE (19:31)
[2020-06-08] MEDS ORDERED: LORazepam 2 MG/ML VIAL ONE (19:31)
--- NOTE | 2020-06-08 20:09 | RAD REPORT ---
EXAM DESCRIPTION: CT - Chest For Pe Angio - 06/08/2020 7:41 pm CLINICAL HISTORY: Chest pain. Chest pain;Dyspnea COMPARISON: <Comparisons> TECHNIQUE: CT angiogram of the pulmonary arteries was performed with MIP. All CT scans are performed using dose optimization technique as appropriate and may include automated exposure control or mA/KV adjustment according to patient size. FINDINGS: No evidence of pulmonary thromboembolism. No acute aortic finding demonstrated. The lungs are clear. No significant pericardial or pleural fluid. No concerning bony finding. IMPRESSION: No evidence of pulmonary thromboembolism. No acute lung findings.
--- NOTE | 2020-06-08 20:29 | ER ---
Nurse's Notes [facility] Name: Rima Buckley Age: 24 yrs Sex: Female : 1995 Arrival Date: 06/08/2020 Time: 17:51 Bed 14 Private MD: Diagnosis: Dyspnea, unspecified Presentation: 06/08 18:04 Chief complaint: Patient states: Chest pain x 1 month. Burning pain, Pain with ca1 breathing, burning pain to L arm. Can't sleep last night. Also middle of my back is hurting. I feel like my throat is swollen too. Coronavirus screen: Client reports previous positive COVID test result. Date of collection: May 11, 2020 Staff notified of need for isolation. Ebola Screen: Patient negative for fever greater than or equal to 101.5 degrees Fahrenheit, and additional compatible Ebola Virus Disease symptoms Patient denies exposure to infectious person. Patient denies travel to an Ebola-affected area in the 21 days before illness onset. No symptoms or risks identified at this time. Initial Sepsis Screen: Does the patient meet any 2 criteria? No. Patient's initial sepsis screen is negative. Does the patient have a suspected source of infection? No. Patient's initial sepsis screen is negative. Risk Assessment: Do you want to hurt yourself or someone else? Patient reports no desire to harm self or others. Onset of symptoms was June 08, 2020. 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 - Social history:: Smoking status: Patient denies any tobacco usage or history of. Screenin:31 Abuse screen: Denies threats or abuse. Denies injuries from another. Nutritional zb screening: No deficits noted. Tuberculosis screening: No symptoms or risk factors identified. Fall Risk None identified. Assessment: 18:25 Reassessment: ECP at bedside. zb 18:50 General: Appears in no apparent distress. uncomfortable, Behavior is anxious. Pain: zb Complains of pain in back and chest Pain currently is 8 out of 10 on a pain scale. Quality of pain is described as pressure. Neuro: Level of Consciousness is awake, alert, obeys commands, Oriented to person, place, time, situation. Cardiovascular: Heart tones S1 S2 present Patient's skin is warm and dry. Pulses are all present. Rhythm is sinus tachycardia Chest pain is described as mild. Respiratory: Airway is patent Respiratory effort is even, unlabored, Respiratory pattern is regular, symmetrical, Breath sounds are clear bilaterally. GI: Abdomen is round non-distended. Derm: Skin is intact, is healthy with good turgor, Skin is dry, Skin is normal, Skin temperature is warm. Musculoskeletal: Range of motion: intact in all extremities. 19:30 Reassessment: Patient appears in no apparent distress at this time. Patient and/or zb family updated on plan of care and expected duration. Pain level reassessed. Patient is alert, oriented x 3, equal unlabored respirations, skin warm/dry/pink. 20:58 Reassessment: Patient appears in no apparent distress at this time. Patient and/or zb family updated on plan of care and expected duration. Pain level reassessed. Patient is alert, oriented x 3, equal unlabored respirations, skin warm/dry/pink. no acute distress. pt up at flex. gait even and steady upon d/c. Vital Signs: 18:04 BP 135 / 94; Pulse 119; Resp 18 S; Temp 97.8(TE); Pulse Ox 98% on R/A; Weight 81.19 kg ca1 (R); Height 5 ft. 2 in. (157.48 cm) (R); Pain 9/10; 18:49 BP 115 / 83; Pulse 113; Resp 19; Pulse Ox 99% on R/A; zb 19:30 BP 114 / 77; Pulse 102; Resp 18; Pulse Ox 99% on R/A; dh4 18:04 Body Mass Index 32.74 (81.19 kg, 157.48 cm) ca1 ED Course: 17:51 Patient arrived in ED. am2 18:07 Triage completed. ca1 18:07 Arm band placed on right wrist. ca1 18:19 Khadra Chowdhury FNP-C is [facility]. kb 18:19 Yoni Lewis MD is Attending Physician. kb 18:24 Marivel Champagne, RN is Primary Nurse. zb 18:32 Patient has correct armband on for positive identification. monitor and storage bin tender on. Pulse zb ox on. NIBP on. Door closed. Noise minimized. Warm blanket given. 18:52 Inserted saline lock: 20 gauge in right antecubital area, using aseptic technique. zb Blood collected. 19:41 CT Chest For PE Angio In Process Unspecified. EDMS 20:58 No provider procedures requiring assistance completed. IV discontinued, intact, zb bleeding controlled, No redness/swelling at site. Pressure dressing applied. Administered Medications: 19:21 Drug: TORadol - Ketorolac 15 mg Route: IVP; Site: right antecubital; zb 20:00 Follow up: Response: No adverse reaction; Pain is decreased zb 19:21 Drug: Ativan 0.5 mg Route: IVP; Site: right antecubital; zb 20:00 Follow up: Response: No adverse reaction; Pain is decreased; Anxiety decreased zb 19:22 Drug: NS 0.9% 1000 ml Route: IV; Rate: 1000 ml; Site: right antecubital; zb 20:00 Follow up: Response: No adverse reaction; IV Status: Completed infusion; IV Intake: zb 1000ml Intake: 20:00 IV: 1000ml; Total: 1000ml. zb Outcome: 20:24 Discharge ordered by . kb 20:59 Discharged to home ambulatory. zb 20:59 Condition: stable 20:59 Discharge instructions given to patient, Instructed on discharge instructions, follow up and referral plans. Demonstrated understanding of instructions, follow-up care. 20:59 Patient left the ED. zb Signatures: Dispatcher [employer] EDMS Khadra Chowdhury, TOW FEEDER-C TOW FEEDER-CkJosephine Londono am2 Kaycee Kaiser RN RN ca1 [facility] Marivel Champagne, JIN RN zb Corrections: (The following items were deleted from the chart) 18:08 18:04 Chief complaint: Patient states: Chest pain x 1 month. Burning pain, Pain with ca1 breathing, burning pain to L arm. Can't sleep last night. ca1 18:08 18:04 BP 135 / 94; Pulse 124bpm; Resp 18bpm; Spontaneous; Pulse Ox 98% RA; Temp 97.8F ca1 Temporal; 81.19 kg Reported; Height 5 ft. 2 in. Reported; BMI: 32.7; Pain 9/10; ca1
--- NOTE | 2020-06-08 20:30 | EDPHYS ---
Physician Documentation [facility] Name: Rima Buckley Age: 24 yrs Sex: Female : 1995 Arrival Date: 06/08/2020 Time: 17:51 Bed 14 Private MD: ED Physician Yoni Lewis HPI: 06/09 00:21 This 24 yrs old Female presents to ER via Ambulatory with complaints of Arm kb Pain - shaking. 00:23 The patient has shortness of breath at rest. Onset: The symptoms/episode began/occurred kb 1 month(s) ago. Duration: The symptoms are continuous. The patient's shortness of breath is aggravated by exertion. Associated signs and symptoms: Pertinent positives: chest pain, non-productive cough. Severity of symptoms: At their worst the symptoms were moderate in the emergency department the symptoms are unchanged. The patient has not experienced similar symptoms in the past. The patient has been recently seen by a physician:. Pt reports she was diagnosed with covid a month ago and is still having chest pain and shortness of breath. Pt appears very anxious with tremors. . 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 - Social history:: Smoking status: Patient denies any tobacco usage or history of. ROS: 06/09 00:20 Constitutional: Negative for fever, chills, and weight loss, Abdomen/GI: Negative for kb abdominal pain, nausea, vomiting, diarrhea, and constipation, MS/Extremity: Negative for injury and deformity, Skin: Negative for injury, rash, and discoloration, Neuro: Negative for headache, weakness, numbness, tingling, and seizure. Cardiovascular: Positive for chest pain, Negative for edema, orthopnea, palpitations, paroxysmal nocturnal dyspnea. Respiratory: Positive for cough, dyspnea on exertion, shortness of breath. Back: Positive for pain at rest. Psych: Positive for anxiety. Exam: 00:20 Head/Face: Normocephalic, atraumatic. Cardiovascular: Regular rate and rhythm with a kb normal S1 and S2. No gallops, murmurs, or rubs. No pulse deficits. Respiratory: Respirations even and unlabored. No increased work of breathing, no retractions or nasal flaring. Abdomen/GI: Soft, non-tender. No distention Skin: Warm, dry with normal turgor. Normal color. MS/ Extremity: Pulses equal, no cyanosis. Neurovascular intact. Full, normal range of motion. Neuro: Awake and alert, GCS 15, oriented to person, place, time, and situation. Moves all extremities. Normal gait. 00:20 Constitutional: The patient appears alert, awake, anxious. Vital Signs: 06/08 18:04 BP 135 / 94; Pulse 119; Resp 18 S; Temp 97.8(TE); Pulse Ox 98% on R/A; Weight 81.19 kg ca1 (R); Height 5 ft. 2 in. (157.48 cm) (R); Pain 9/10; 18:49 BP 115 / 83; Pulse 113; Resp 19; Pulse Ox 99% on R/A; zb 19:30 BP 114 / 77; Pulse 102; Resp 18; Pulse Ox 99% on R/A; dh4 18:04 Body Mass Index 32.74 (81.19 kg, 157.48 cm) ca1 MDM: 18:19 Patient medically screened. kb 06/09 00:19 Data reviewed: vital signs, nurses notes. Data interpreted: Pulse oximetry: on room air kb is 99 %. Interpretation: normal. Counseling: I had a detailed discussion with the patient and/or guardian regarding: the historical points, exam findings, and any diagnostic results supporting the discharge/admit diagnosis, lab results, radiology results, the need for outpatient follow up, a family practitioner, to return to the emergency department if symptoms worsen or persist or if there are any questions or concerns that arise at home. 06/08 18:38 Order name: CBC with Diff; Complete Time: 19:32 kb 06/08 18:38 Order name: Basic Metabolic Panel; Complete Time: 19:18 kb 06/08 18:38 Order name: CT Chest For PE Angio; Complete Time: 20:24 kb 06/08 18:41 Order name: TSH; Complete Time: 19:49 kb 06/08 18:38 Order name: IV Start; Complete Time: 19:25 kb 06/08 18:41 Order name: EKG; Complete Time: 18:42 kb 06/08 18:41 Order name: EKG - Nurse/Tech; Complete Time: 18:49 kb Administered Medications: 06/08 19:21 Drug: TORadol - Ketorolac 15 mg Route: IVP; Site: right antecubital; zb 20:00 Follow up: Response: No adverse reaction; Pain is decreased zb 19:21 Drug: Ativan 0.5 mg Route: IVP; Site: right antecubital; zb 20:00 Follow up: Response: No adverse reaction; Pain is decreased; Anxiety decreased zb 19:22 Drug: NS 0.9% 1000 ml Route: IV; Rate: 1000 ml; Site: right antecubital; zb 20:00 Follow up: Response: No adverse reaction; IV Status: Completed infusion; IV Intake: zb 1000ml Disposition: 06/09 18:46 Co-signature as Attending Physician, Yoni Lewis MD. ma2 Disposition: 06/08/20 20:24 Discharged to Home. Impression: Dyspnea, unspecified. - Condition is Stable. - Discharge Instructions: Hyperventilation, Shortness of Breath, [id number]. - Medication Reconciliation Form, Thank You Letter, Antibiotic Education, Prescription Opioid Use form. - Follow up: Emergency Department; When: As needed; Reason: Worsening of condition. Follow up: Private Physician; When: 2 - 3 days; Reason: Recheck today's complaints, Continuance of care, Re-evaluation by your physician. Signatures: Dispatcher [employer] EDNC Khadra Chowdhury, ACETYLENE CYLINDER PACKING MIXER-C ACETYLENE CYLINDER PACKING MIXER-Yoni Medina MD MD ma2 Kaycee Kaiser RN RN ca1 Marivel Champagne RN RN zb Corrections: (The following items were deleted from the chart) 06/08 20:59 20:24 06/08/2020 20:24 Discharged to Home. Impression: Dyspnea, unspecified. Condition zb is Stable. Forms are Medication Reconciliation Form, Thank You Letter, Antibiotic Education, Prescription Opioid Use. Follow up: Emergency Department; When: As needed; Reason: Worsening of condition. Follow up: Private Physician; When: 2 - 3 days; Reason: Recheck today's complaints, Continuance of care, Re-evaluation by your physician. kb
[2020-06-08 22:18] VITALS: TEMP 97.8
[2020-06-08 22:19] VITALS: O2SAT 99
[2020-06-08 22:20] VITALS: BP 114/77
--- NOTE | 2020-06-09 12:55 | EKG ---
Test Date: 2020-06-08 Test Time: 18:49:40 Lead Sharepoint Developer: KENNETH MEASUREMENT RESULTS: Intervals: Rate: 106 AL: 160 QRSD: 74 QT: 328 QTc: 435 [place]: P: 44 AL: 160 QRS: 28 T: 39 INTERPRETIVE STATEMENTS: Sinus tachycardia Otherwise normal ECG Compared to ECG 05/13/2020 03:53:16 Sinus rhythm no longer present Electronically Signed On 06-09-20 12:52:41 CDT by Riccardo Jacobo
== END 2020-06-08 20:59 | disposition home or self-care (01) ==
LOC: ER 17:49
DX: R06.00 Dyspnea, unspecified (principal); Z86.16 Personal history of COVID-19
CPT/HCPCS: 36415; 71275; 80048; 84443; 85025; 93005; 96361; 96374; 96375; 99284; J7030; Q9967

== ENCOUNTER 2020-06-12 16:57 | Emergency (ER) | payer SELFPAY ==
[2020-06-12 19:31] LABS: Urine Blood Trace-intact (Negative); Urine Glucose Negative (Negative); Urine Protein Negative (Negative); Urine pH 6.5 (5.0-7.0)
[2020-06-12] MEDS ORDERED: FAMOTIDINE 20 MG/2 ML VIAL IV ONE (19:37)
[2020-06-12] MEDS ORDERED: ONDANSETRON 4 MG/2 ML VIAL ONE (19:37)
[2020-06-12 19:49] LABS: Absolute Lymphocytes (CBC) 1.1 K/uL (0.7-4.9); Basophils % 0.3 % (0-1.3); Hematocrit 36.7 % (36.0-45.0); Lymphocytes % 16.1 % (15.3-44.8); MPV 8.2 fL (7.6-11.3); RBC Red Blood Cell Count 4.47 M/uL (3.86-4.86)
[2020-06-12 19:55] LABS: ALT/SGPT 32 U/L (12-78); AST/SGOT 9 U/L (15-37); Albumin 3.9 g/dL (3.4-5.0); Alkaline Phosphatase 97 U/L (45-117); BUN Blood Urea Nitrogen 3 mg/dL (7-18); Bicarbonate 27 mmol/L (21-32); Bilirubin Direct 0.1 mg/dL (0-0.2); Bilirubin Total 0.5 mg/dL (0.2-1.0); Glucose Level 93 mg/dL (74-106); Lipase 94 U/L (73-393); Potassium 3.6 mmol/L (3.5-5.1); Protein, Total 7.7 g/dL (6.4-8.2); Sodium Level 140 mmol/L (136-145)
[2020-06-12] MEDS ORDERED: NA CHLORIDE 0.9% 1,000 ML ONE (20:00)
--- NOTE | 2020-06-12 20:42 | EDPHYS ---
Physician Documentation [facility] Name: Rima Buckley Age: 24 yrs Sex: Female : 1995 Arrival Date: 06/12/2020 Time: 16:58 Bed 25 Private MD: ED Physician Skinny Luu HPI: 06/12 19:10 This 24 yrs old Female presents to ER via Ambulatory with complaints of Chest cp Congestion, Decreased Appetite, Difficulty Swallowing. 19:10 The patient presents with dysphagia, of both solids and liquids. Onset: The cp symptoms/episode began/occurred 1 month(s) ago. 19:10 Severity of symptoms: in the emergency department the symptoms are unchanged, despite cp home interventions. Associated signs and symptoms: Pertinent positives: chest pain, Pertinent negatives cough, fever, flu-like symptoms, sore throat, vomiting. 19:10 Patient with history of COVID-19 infection last month. Denies any change in taste. cp Patient denies any symptoms of anxiety. 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 - Social history:: Smoking status: Patient denies any tobacco usage or history of. ROS: 19:15 Cardiovascular: Positive for chest pain, Negative for edema, palpitations. cp 19:15 Eyes: Negative for injury, pain, redness, and discharge. cp 19:15 Constitutional: Negative for body aches, chills, fever, poor PO intake, weight loss. 19:15 ENT: Positive for difficulty swallowing, Negative for difficulty handling secretions. 19:15 Respiratory: Negative for cough, shortness of breath, wheezing. 19:15 Abdomen/GI: Negative for abdominal pain, nausea, vomiting, and diarrhea. 19:15 Neuro: Negative for altered mental status, headache, weakness. 19:15 All other systems are negative. Exam: 19:20 Constitutional: The patient appears in no acute distress, alert, awake, cp non-diaphoretic, non-toxic, well developed, well nourished, anxious. 19:20 Head/Face: Normocephalic, atraumatic. cp 19:20 Eyes: Periorbital structures: appear normal, Conjunctiva: normal, no exudate, no injection, Sclera: no appreciated abnormality, Lids and lashes: appear normal, bilaterally. 19:20 ENT: External ear(s): are unremarkable, Nose: is normal, Mouth: Lips: moist, Oral mucosa: moist, Posterior pharynx: Airway: no evidence of obstruction, patent. 19:20 Neck: ROM/movement: is normal, is supple, without pain, no range of motions limitations. 19:20 Chest/axilla: Inspection: normal, Palpation: is normal, no crepitus, no tenderness. 19:20 Cardiovascular: Rate: tachycardic, Rhythm: regular, Heart sounds: murmur, not appreciated, Edema: is not appreciated, JVD: is not appreciated. 19:20 Respiratory: the patient does not display signs of respiratory distress, Respirations: normal, no use of accessory muscles, no retractions, labored breathing, is not present, Breath sounds: are clear throughout, no decreased breath sounds, no stridor, no wheezing. Vital Signs: 17:07 BP 148 / 96; Pulse 107; Resp 18 S; Temp 98.2(TE); Pulse Ox 100% on R/A; ca1 19:00 BP 140 / 98; Pulse 104; Resp 16; Pulse Ox 100% ; sf 19:21 BP 132 / 74; Pulse 90; Resp 16; Pulse Ox 100% ; sf 19:31 BP 121 / 83; Pulse 93; Resp 16; Pulse Ox 100% ; sf 20:00 BP 112 / 82; Pulse 83; Resp 16; Pulse Ox 98% ; sf MDM: 18:43 Patient medically screened. cp 19:30 Differential diagnosis: tonsillitis, uvulitis, anxiety. cp 20:40 Data reviewed: vital signs, nurses notes, lab test result(s), radiologic studies, plain cp films. 20:40 Test interpretation: by ED physician or midlevel provider: chest xray negative for cp infiltrates. Counseling: I had a detailed discussion with the patient and/or guardian regarding: the historical points, exam findings, and any diagnostic results supporting the discharge/admit diagnosis, lab results, radiology results, the need for outpatient follow up, a product scientist, to return to the emergency department if symptoms worsen or persist or if there are any questions or concerns that arise at home. ED course: VSS. Patient observed tolerating po fluids. Discussed concern that symptoms seemed induced by anxiety but patient denies any concern for anxiety. Will discharge to home for continued monitoring. 06/12 19:04 Order name: Basic Metabolic Panel; Complete Time: 20:12 cp 04/ 20:12 Interpretation: Normal except: CL 108; BUN 3. cp 06/12 19:04 Order name: CBC with Diff; Complete Time: 19:54 cp 06/12 19:54 Interpretation: Normal except: RDW 18.8; ERIC% 76.5. cp 06/12 19:04 Order name: Hepatic Function; Complete Time: 20:12 cp 06/12 20:13 Interpretation: Normal except: AST 9; GLOB 3.8; A/G 1.0. cp 06/12 19:04 Order name: Lipase; Complete Time: 20:12 cp 06/12 19:31 Order name: Urine Dipstick-Ancillary; Complete Time: 19:36 EDMS 06/12 19:32 Order name: Urine --Ancillary (enter results) tt3 06/12 19:04 Order name: IV Saline Lock; Complete Time: 19:16 cp 06/12 19:04 Order name: Labs collected and sent; Complete Time: 19:17 cp 06/12 19:04 Order name: Urine Dipstick-Ancillary (obtain specimen); Complete Time: 19:32 cp 06/12 19:32 Order name: Urine --Ancillary; Complete Time: 20:53 EDMS 06/12 19:54 Order name: XRAY Chest (1 view); Complete Time: 20:53 cp 06/12 20:53 Interpretation: Report reviewed. cp 06/12 19:04 Order name: Urine Test (obtain specimen); Complete Time: 19:32 cp 06/12 20:13 Order name: PO challenge; Complete Time: 20:30 cp Administered Medications: 19:24 Drug: Zofran (Ondansetron) 4 mg Route: IVP; Site: left antecubital; sf 20:30 Follow up: Response: No adverse reaction sf 19:24 Drug: Pepcid (famotidine) 20 mg Route: IVP; Site: left antecubital; sf 20:30 Follow up: Response: No adverse reaction sf 19:45 Drug: NS 0.9% 1000 ml Route: IV; Rate: 1 bolus; Site: left antecubital; sf 20:30 Follow up: IV Status: Completed infusion; IV Intake: 1000ml Disposition: 06/13 08:51 Co-signature as Attending Physician, Skinny Luu MD I agree with the assessment and [facility] plan of care. Disposition: 06/12/20 20:41 Discharged to Home. Impression: Dysphagia, unspecified. - Condition is Stable. - Discharge Instructions: Dysphagia, Upper Endoscopy. - Prescriptions for Zofran 4 mg Oral Tablet - take 1 tablet by ORAL route every 12 hours As needed; 20 tablet. - Medication Reconciliation Form, Thank You Letter, Antibiotic Education, Prescription Opioid Use form. - Follow up: Bernabe Casanova MD; When: 2 - 3 days; Reason: Recheck today's complaints. - Problem is new. - Symptoms have improved. Signatures: Dispatcher [employer] EDSkinny Slaughter MD MD cha Page, Corey, PA PA cp Kaycee Kaiser RN RN ca1 Emeka Dhaliwal RN RN sf Corrections: (The following items were deleted from the chart) 06/12 19:36 17:11 Home Meds: None; ca1 20:59 20:41 06/12/2020 20:41 Discharged to Home. Impression: Dysphagia, unspecified. sf Condition is Stable. Forms are Medication Reconciliation Form, Thank You Letter, Antibiotic Education, Prescription Opioid Use. Follow up: Bernabe Casanova; When: 2 - 3 days; Reason: Recheck today's complaints. Problem is new. Symptoms have improved. cp
--- NOTE | 2020-06-12 20:42 | ER ---
Nurse's Notes [facility] Name: Rima Buckley Age: 24 yrs Sex: Female : 1995 Arrival Date: 06/12/2020 Time: 16:58 Bed 25 Private MD: Diagnosis: Dysphagia, unspecified Presentation: 06/12 17:07 Chief complaint: Patient states: Last time I came Monday, I got cleared of Covid, ca1 everything was clear. But whenever I try to eat I swallow, I can feel I still have whitish mucous but it's not coming out. I feel like my throat is so tight. I feel like I can't clear my lower throat. Haven't able to eat or drink for days now. I haven't slept for days, and I still feel bloated in my upper abdomen. Coronavirus screen: Client denies travel out of the [place] in the last 14 days. sore throat, Client presents with at least one sign or symptom that may indicate coronavirus-19. Standard/surgical mask placed on the client. Provider contacted for isolation considerations. Ebola Screen: Patient negative for fever greater than or equal to 101.5 degrees Fahrenheit, and additional compatible Ebola Virus Disease symptoms Patient denies exposure to infectious person. Patient denies travel to an Ebola-affected area in the 21 days before illness onset. No symptoms or risks identified at this time. Initial Sepsis Screen: Does the patient meet any 2 criteria? No. Patient's initial sepsis screen is negative. Does the patient have a suspected source of infection? No. Patient's initial sepsis screen is negative. Risk Assessment: Do you want to hurt yourself or someone else? Patient reports no desire to harm self or others. Onset of symptoms was June 12, 2020. 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 - Social history:: Smoking status: Patient denies any tobacco usage or history of. Screenin:42 Abuse screen: Denies threats or abuse. Denies injuries from another. Nutritional iw screening: No deficits noted. Tuberculosis screening: No symptoms or risk factors identified. Fall Risk None identified. Assessment: 18:41 General: Appears in no apparent distress. Behavior is calm, cooperative. General: iw Denies fever. Pain: Complains of pain in mid-sternal area. Neuro: Level of Consciousness is awake, alert, obeys commands, Oriented to person, place, time, situation, Moves all extremities. Full function. Cardiovascular: Patient's skin is warm and dry. Respiratory:. EENT: Reports pain when swallowing. Derm: Skin is intact, is healthy with good turgor. Musculoskeletal: Range of motion: intact in all extremities. 19:10 General: Appears in no apparent distress. comfortable, Behavior is calm, cooperative. sf Pain: Complains of pain in epigastric area. Neuro: Level of Consciousness is awake, alert, Oriented to person, place, time, situation. Cardiovascular: Denies chest pain, lightheadedness, shortness of breath, Patient's skin is warm and dry. Respiratory: Airway is patent Respiratory effort is even, unlabored, Respiratory pattern is regular, symmetrical. GI: Reports intolerance of fluids, intolerance of food, nausea. : No signs and/or symptoms were reported regarding the genitourinary system. EENT: Reports pain when swallowing. Derm: Skin is pink, warm \T\ dry. Musculoskeletal: No signs and/or symptoms reported regarding the musculoskeletal system. 20:32 Reassessment: Patient appears in no apparent distress at this time. Patient and/or sf family updated on plan of care and expected duration. Pain level reassessed. Patient is alert, oriented x 3, equal unlabored respirations, skin warm/dry/pink. Given water for PO challenge Patient states feeling better. Patient states symptoms have improved. Vital Signs: 17:07 BP 148 / 96; Pulse 107; Resp 18 S; Temp 98.2(TE); Pulse Ox 100% on R/A; ca1 19:00 BP 140 / 98; Pulse 104; Resp 16; Pulse Ox 100% ; sf 19:21 BP 132 / 74; Pulse 90; Resp 16; Pulse Ox 100% ; sf 19:31 BP 121 / 83; Pulse 93; Resp 16; Pulse Ox 100% ; sf 20:00 BP 112 / 82; Pulse 83; Resp 16; Pulse Ox 98% ; sf ED Course: 16:58 Patient arrived in ED. as 17:11 Triage completed. ca1 17:11 Arm band placed on right wrist. ca1 18:39 Skinny Lucas PA is PHCP. cp 18:39 Yoni Lewis MD is Attending Physician. cp 18:41 Tracie Armando, RN is Primary Nurse. iw 19:10 Patient has correct armband on for positive identification. Bed in low position. Call sf light in reach. Side rails up X 1. Pulse ox on. NIBP on. Door closed. Noise minimized. Visitors limited. Lights dimmed. Verbal reassurance given. 19:10 Initial lab(s) drawn, by me, sent to lab. Inserted saline lock: 20 gauge in left sf antecubital area, using aseptic technique. Blood collected. 19:18 Skinny Luu MD is Attending Physician. cp 19:20 Urine collected: clean catch specimen, clear. sf 19:42 Warm blanket given. sf 19:42 Urine --Ancillary (enter results) Sent. sf 19:55 Primary Nurse role handed off by Tracie Armando, RN sg 20:15 X-ray(s) taken. sf 20:21 XRAY Chest (1 view) In Process Unspecified. EDMS 20:21 Emeka Dhaliwal, JIN is Primary Nurse. sf 20:41 Bernabe Casanova MD is Referral Physician. cp 20:58 No provider procedures requiring assistance completed. IV discontinued, intact, sf bleeding controlled, No redness/swelling at site. Pressure dressing applied. Administered Medications: 19:24 Drug: Zofran (Ondansetron) 4 mg Route: IVP; Site: left antecubital; sf 20:30 Follow up: Response: No adverse reaction sf 19:24 Drug: Pepcid (famotidine) 20 mg Route: IVP; Site: left antecubital; sf 20:30 Follow up: Response: No adverse reaction sf 19:45 Drug: NS 0.9% 1000 ml Route: IV; Rate: 1 bolus; Site: left antecubital; sf 20:30 Follow up: IV Status: Completed infusion; IV Intake: 1000ml sf Intake: 20:30 IV: 1000ml; Total: 1000ml. sf Outcome: 20:41 Discharge ordered by . cp 20:58 Discharged to home ambulatory. sf 20:58 Condition: stable 20:58 Discharge instructions given to patient, Instructed on discharge instructions, follow up and referral plans. medication usage, Demonstrated understanding of instructions, follow-up care, medications, Prescriptions given X 1. 20:59 Patient left the ED. sf Signatures: Dispatcher [employer] EDMS Emeka Nogueira RN RN sg Jeanne Buckley Irene, RN RN iw Page, Corey, PA PA cp Acob, Cheryl, RN RN ca1 Emeka Dhaliwal RN RN sf Corrections: (The following items were deleted from the chart) 17:12 17:07 Chief complaint: Patient states: Last time I came Monday, I got cleared of Covid, ca1 everything was clear. But whenever I try to eat I swallow, I can feel I still have whitish mucous but it's not coming out. I feel like my throat is so tight. I feel like I can't clear my lower throat. Haven't able to eat or drink for days now ca1 19:36 17:11 Home Meds: None; ca1 sf
--- NOTE | 2020-06-12 20:43 | RAD REPORT ---
EXAM DESCRIPTION: [facility] Single View06/12/2020 8:21 pm CLINICAL HISTORY: Chest pain COMPARISON: June 08, 2020 FINDINGS: The lungs appear clear of acute infiltrate. The heart is normal size IMPRESSION: No acute abnormalities displayed
[2020-06-13 11:20] VITALS: TEMP 98.2
[2020-06-13 11:25] VITALS: BP 112/82; O2SAT 98
== END 2020-06-12 20:59 | disposition home or self-care (01) ==
LOC: ER 16:57
DX: R13.10 Dysphagia, unspecified (principal); Z86.16 Personal history of COVID-19
CPT/HCPCS: 36415; 71045; 80048; 80076; 81003; 81025; 83690; 85025; 96361; 96374; 96375; 99284; J2405; J7030